=== PATIENT | male | born 1960 | race Hispanic/Latino ===

== ENCOUNTER 2019-01-09 09:18 | Emergency (ER) | payer SELFPAY ==
--- NOTE | 2019-01-09 10:17 | RAD REPORT ---
EXAM DESCRIPTION: RAD - Abdomen Acute Series - 01/09/2019 10:04 am CLINICAL HISTORY: Abdominal pain FINDINGS: The bowel gas pattern is unremarkable. Free air is not seen beneath the diaphragm. Lungs appear clear of acute infiltrate No abnormal calcification is displayed.
[2019-01-09 10:35] LABS: Basophils % 0.6 % (0-1.3); Eosinophils % 3.6 % (0-4.4); Hematocrit 44.5 % (39.6-49.0); Lymphocytes % 26.6 % (15.3-44.8); MPV 8.5 fL (7.6-11.3); Monocytes % 9.5 % (3.3-12.3); RBC Red Blood Cell Count 4.85 M/uL (4.33-5.43)
[2019-01-09] MEDS ORDERED: NITROGLYCERIN 0.4 MG/TAB SL ONE (10:57)
[2019-01-09] MEDS ORDERED: NA CHLORIDE 0.9% 1,000 ML ONE (11:18)
--- NOTE | 2019-01-09 11:21 | ER ---
Nurse's Notes [facility] Name: Adeel Zambrano Age: 58 yrs Sex: Male : 1960 Arrival Date: 01/09/2019 Time: 09:22 Bed 5 Private MD: Diagnosis: Generalized abdominal pain;Constipation Presentation: 01/09 09:31 Presenting complaint: Diarrhea x 1 month, then constipation and LUQ pain for the last 5 hb days, subjective fever today. Transition of care: patient was not received from another setting of care. Onset of symptoms is unknown. Risk Assessment: Do you want to hurt yourself or someone else?. Initial Sepsis Screen: Does the patient meet any 2 criteria? No. Patient's initial sepsis screen is negative. Does the patient have a suspected source of infection? No. Patient's initial sepsis screen is negative. Care prior to arrival: None. 09:31 Method Of Arrival: Ambulatory hb 09:31 Acuity: ROSSANA 3 hb Triage Assessment: 09:35 General: Appears in no apparent distress. comfortable, Behavior is cooperative, bp appropriate for age, anxious. Pain: Complains of pain in abdomen. EENT: No deficits noted. Neuro: No deficits noted. Cardiovascular: No deficits noted. Respiratory: No deficits noted. GI: Abdomen is non-distended, Bowel sounds present X 4 quads. : No signs and/or symptoms were reported regarding the genitourinary system. Derm: No deficits noted. Musculoskeletal: No deficits noted. Historical: - Allergies: 09:31 No Known Allergies; hb - Home Meds: 09:31 None [Active]; hb - PMHx: 09:31 None; hb - PSHx: 09:31 None; hb - Immunization history:: Adult Immunizations up to date. - Social history:: Smoking status: Patient/guardian denies using tobacco. - Ebola Screening: : No symptoms or risks identified at this time. Screenin:32 Abuse screen: Denies threats or abuse. Denies injuries from another. Nutritional hb screening: No deficits noted. Tuberculosis screening: No symptoms or risk factors identified. Fall Risk None identified. Assessment: 09:37 General: SEE TRIAGE NOTE. GI: Abd is soft X 4 quads. bp 10:30 Reassessment: PT RETURNED FROM RAD. ALL CURRENT ORDERS COMPLETED. bp 11:21 Reassessment: D/C ON HOLD FOR IVF COMPLETION. bp 11:57 Reassessment: PT D/C HOME AMBULATORY WITH FAMILY, DX WITH CONSTIPATION. bp Vital Signs: 09:30 BP 155 / 85; Pulse 88; Resp 16; Temp 98; Pulse Ox 97% on R/A; Weight 73.94 kg; Height 5 hb ft. 9 in. (175.26 cm); Pain 5/10; 10:30 BP 139 / 82; Pulse 72; Resp 16; Pulse Ox 98% ; bp 11:22 BP 129 / 78; Pulse 79; Resp 16; Temp 98; Pulse Ox 100% ; bp 09:30 Body Mass Index 24.07 (73.94 kg, 175.26 cm) hb ED Course: 09:22 Patient arrived in ED. mr 09:25 Orlando Yoo, JORDYN is Primary Nurse. bp 09:27 Marcus Szymanski MD is Attending Physician. gs 09:31 Arm band placed on. hb 09:32 Triage completed. hb 09:37 Patient has correct armband on for positive identification. Bed in low position. Call bp light in reach. Side rails up X2. 10:05 XRAY Abdomen Acute Series In Process Unspecified. EDMS 10:21 Inserted saline lock: 20 gauge in right antecubital area, using aseptic technique. bp Blood collected. 11:08 Justin Mckeon MD is Referral Physician. gs 11:57 No provider procedures requiring assistance completed. IV discontinued, intact, bp bleeding controlled, No redness/swelling at site. Pressure dressing applied. Administered Medications: 11:05 Drug: NS 0.9% 1000 ml Route: IV; Rate: 1 bolus; Site: right antecubital; bp 11:56 Follow up: IV Status: Completed infusion; IV Intake: 1000ml bp Intake: 11:56 IV: 1000ml; Total: 1000ml. bp Outcome: 11:21 Discharge ordered by . gs 11:57 Discharged to home ambulatory, with family. bp 11:57 Condition: stable 11:57 Discharge instructions given to patient, Instructed on discharge instructions, follow up and referral plans. medication usage, Demonstrated understanding of instructions, follow-up care, medications, Prescriptions given X 1. 11:57 Patient left the ED. bp Signatures: Dispatcher [employer] EDMD Marleen Herbert mr Rhea Rachel RN RN Marcus Sousa MD MD gs Orlando Yoo, RN RN bp
--- NOTE | 2019-01-09 11:21 | EDPHYS ---
Physician Documentation [facility] Name: Adeel Zambrano Age: 58 yrs Sex: Male : 1960 Arrival Date: 01/09/2019 Time: 09:22 Bed 5 Private MD: ED Physician Marcus Szymanski HPI: 01/09 10:56 This 58 yrs old Male presents to ER via Ambulatory with complaints of gs Abdominal Pain, Constipation. 10:56 The patient presents with abdominal pain. Onset: The symptoms/episode began/occurred 2 gs month(s) ago. The symptoms do not radiate. Associated signs and symptoms: Pertinent positives: constipation. The symptoms are described as crampy. Modifying factors: The symptoms are alleviated by nothing, the symptoms are aggravated by nothing. Severity of pain: At its worst the pain was moderate. The patient has experienced similar episodes in the past, a few times. Historical: - Allergies: 09:31 No Known Allergies; hb - Home Meds: 09:31 None [Active]; hb - PMHx: 09:31 None; hb - PSHx: 09:31 None; hb - Immunization history:: Adult Immunizations up to date. - Social history:: Smoking status: Patient/guardian denies using tobacco. - Ebola Screening: : No symptoms or risks identified at this time. ROS: 10:56 All other systems are negative. gs Exam: 10:56 Head/Face: Normocephalic, atraumatic. Eyes: Pupils equal round and reactive to light, gs extra-ocular motions intact. Lids and lashes normal. Conjunctiva and sclera are non-icteric and not injected. Cornea within normal limits. Periorbital areas with no swelling, redness, or edema. ENT: Nares patent. No nasal discharge, no septal abnormalities noted. Tympanic membranes are normal and external auditory canals are clear. Oropharynx with no redness, swelling, or masses, exudates, or evidence of obstruction, uvula midline. Mucous membranes moist. Neck: Trachea midline, no thyromegaly or masses palpated, and no cervical lymphadenopathy. Supple, full range of motion without nuchal rigidity, or vertebral point tenderness. No Meningismus. Chest/axilla: Normal chest wall appearance and motion. Nontender with no deformity. No lesions are appreciated. Cardiovascular: Regular rate and rhythm with a normal S1 and S2. No gallops, murmurs, or rubs. Normal PMI, no JVD. No pulse deficits. Respiratory: Lungs have equal breath sounds bilaterally, clear to auscultation and percussion. No rales, rhonchi or wheezes noted. No increased work of breathing, no retractions or nasal flaring. Abdomen/GI: Soft, non-tender, with normal bowel sounds. No distension or tympany. No guarding or rebound. No evidence of tenderness throughout. Back: No spinal tenderness. No costovertebral tenderness. Full range of motion. Skin: Warm, dry with normal turgor. Normal color with no rashes, no lesions, and no evidence of cellulitis. MS/ Extremity: Pulses equal, no cyanosis. Neurovascular intact. Full, normal range of motion. Neuro: Awake and alert, GCS 15, oriented to person, place, time, and situation. Cranial nerves II-XII grossly intact. Motor strength 5/5 in all extremities. Sensory grossly intact. Cerebellar exam normal. Normal gait. 10:56 Constitutional: The patient appears alert, awake. Vital Signs: 09:30 BP 155 / 85; Pulse 88; Resp 16; Temp 98; Pulse Ox 97% on R/A; Weight 73.94 kg; Height 5 hb ft. 9 in. (175.26 cm); Pain 5/10; 10:30 BP 139 / 82; Pulse 72; Resp 16; Pulse Ox 98% ; bp 11:22 BP 129 / 78; Pulse 79; Resp 16; Temp 98; Pulse Ox 100% ; bp 09:30 Body Mass Index 24.07 (73.94 kg, 175.26 cm) hb MDM: 09:45 Patient medically screened. 10:56 Data reviewed: vital signs, nurses notes. Counseling: I had a detailed discussion with the patient and/or guardian regarding: the historical points, exam findings, and any diagnostic results supporting the discharge/admit diagnosis, lab results, radiology results, the need for outpatient follow up. Response to treatment: There is no appreciated change of the patient's symptoms at this time, and as a result, I will discharge patient. 01/09 09:46 Order name: CBC with Diff; Complete Time: 10:47 01/09 09:46 Order name: Basic Metabolic Panel; Complete Time: 10:47 01/09 09:46 Order name: XRAY Abdomen Acute Series; Complete Time: 10:23 01/09 09:46 Order name: Urine Microscopic Only 01/09 10:39 Order name: Urine Dipstick--Ancillary (enter results) 01/09 09:46 Order name: Urine Dipstick-Ancillary (obtain specimen); Complete Time: 10:30 Administered Medications: 11:05 Drug: NS 0.9% 1000 ml Route: IV; Rate: 1 bolus; Site: right antecubital; bp 11:56 Follow up: IV Status: Completed infusion; IV Intake: 1000ml bp Disposition: 01/09/19 11:21 Discharged to Home. Impression: Generalized abdominal pain, Constipation. - Condition is Stable. - Discharge Instructions: Abdominal Pain, Adult, Constipation, Adult, [id number]. - Prescriptions for Miralax 17 gram/dose Oral - take 1 packet by ORAL route once daily dilute powder in 8 ounces of water or juice; 1 bottle. - Medication Reconciliation Form, Thank You Letter, Antibiotic Education, Prescription Opioid Use form. - Follow up: Justin Mckeon MD; When: 2 - 3 days; Reason: Re-evaluation by your physician. Signatures: Dispatcher [employer] EDMS Rhea Rachel RN RN Marcus Szymanski MD MD Orlando oYo RN RN bp Corrections: (The following items were deleted from the chart) 11:57 11:21 01/09/2019 11:21 Discharged to Home. Impression: Generalized abdominal pain; bp Constipation. Condition is Stable. Forms are Medication Reconciliation Form, Thank You Letter, Antibiotic Education, Prescription Opioid Use. Follow up: Justin Mckeon; When: 2 - 3 days; Reason: Re-evaluation by your physician.
[2019-01-09 11:32] LABS: Urine Bacteria <20 /HPF (NONE SEEN); Urine Culture Reflex Order NOT NEEDED; Urine RBC <5 /HPF (NONE SEEN)
[2019-01-09 14:15] LABS: Urine Blood NEGATIVE (NEG); Urine Glucose NEGATIVE (NEG); Urine Protein NEGATIVE (NEG); Urine Specific Gravity 1.025 (1.005-1.030); Urine pH 5.5 (5.0-7.0)
== END 2019-01-09 11:57 | disposition home or self-care (01) ==
LOC: ER 09:18
DX: K59.00 Constipation, unspecified (principal)
CPT/HCPCS: 36415; 74022; 80048; 81003; 81015; 85025; 96360; 99284; J7030